=== PATIENT | male | born 1975 | race Caucasian/White ===

== ENCOUNTER → 2024-04-21 15:19 | Outpatient (REF) | payer BC, SELFPAY ==
[2024-04-21 15:47] LABS: Draw Blood Only 3 BLUE TOP TUBES
== END ==
LOC: REG 15:19
PROVIDERS: ATTENDING PHYSICIAN Chiropractor; FAMILY PHYSICIAN Family Medicine
DX: Z00.00 Encounter for general adult medical examination without abnormal findings (principal)
CPT/HCPCS: 36415